=== PATIENT | male | born 1995 | race Caucasian/White ===

== ENCOUNTER 2018-09-09 14:47 | Emergency (ER) | payer SELFPAY ==
[~2018-09-09] VITALS: Ht 185.4 cm; Wt 86.6 kg
[2018-09-09 14:54] VITALS: BP 156/102; Ht 185.4 cm; Wt 86.6 kg
== END 2018-09-09 16:12 | disposition home or self-care (01) ==
LOC: ED 14:47
DX: J35.8 Other chronic diseases of tonsils and adenoids (principal); Z13.89 Encounter for screening for other disorder
CPT/HCPCS: 82962

== ENCOUNTER 2020-09-02 23:31 | Emergency (ER) | payer OTHER, SELFPAY ==
[~2020-09-02] VITALS: Ht 185.4 cm; Wt 88.5 kg
[2020-09-02 23:38] VITALS: Ht 185.4 cm; Wt 88.5 kg
[2020-09-03 01:21] VITALS: BP 146/87
== END 2020-09-03 01:21 | disposition home or self-care (01) ==
LOC: ED 23:31
DX: U07.1 COVID-19 (principal); Z88.0 Allergy status to penicillin
CPT/HCPCS: U0003

== ENCOUNTER 2020-09-04 20:11 | Emergency (ER) | payer OTHER, SELFPAY ==
[~2020-09-04] VITALS: Ht 185.4 cm; Wt 88.5 kg
[2020-09-04 20:13] VITALS: Ht 185.4 cm; Wt 88.5 kg
[2020-09-04 21:01] LABS: BASOPHIL % 1.5 % (0.2-1.5); PLATELET COUNT 326 x10^3mcL (152-348); RED CELL DISTRIBUTION WIDTH 13.7 % (12.1-16.2)
[2020-09-04 21:24] LABS: CARBON DIOXIDE 28.8 mmol/L (21-32); CHLORIDE SERUM 103 mmol/L (98-107); GFR1 > 60 mL/min; GLUCOSE SERUM 123 mg/dL (74-106); POTASSIUM SERUM 3.5 mmol/L (3.5-5.1); SODIUM SERUM 142 mmol/L (136-145)
[2020-09-04 21:28] LABS: ALBUMIN 4.7 g/dL (3.4-5.0); ALKALINE PHOSPHATASE 86 U/L (46-116); ALT/SGPT 19 U/L (16-63); AST/SGOT 80 U/L (15-37); BILIRUBIN TOTAL 1.5 mg/dL (0.20-1.00); C REACTIVE PROTEIN 0.5 mg/dL (<=0.9); CHOLESTEROL 174 mg/dL (<200); HDL CHOLESTEROL 44 mg/dL (40-60); LACTIC DEHYDROGENASE (LDH) 178 U/L (100-190); LIPASE 60 IU/L (73-393)
[2020-09-04 21:30] LABS: TOTAL PROTEIN, SERUM 9.1 g/dL (6.4-8.2)
[2020-09-04 22:00] LABS: microscopic required? NO
[2020-09-04 22:06] LABS: UA SPECIFIC GRAVITY <=1.005 (1.005-1.035); urine erythrocyte NEGATIVE (NEGATIVE)
[2020-09-04 22:16] LABS: AMPHETAMINE QUAL UR NONE DETECTED (See below)
[2020-09-04 23:02] VITALS: BP 125/81
== END 2020-09-04 23:02 | disposition home or self-care (01) ==
LOC: ED 20:11
PROVIDERS: Emergency Medicine
DX: U07.1 COVID-19 (principal); J12.82 Pneumonia due to coronavirus disease 2019; R07.89 Other chest pain; R00.2 Palpitations; Z88.0 Allergy status to penicillin; Z98.890 Other specified postprocedural states
CPT/HCPCS: 83880; 85378